=== PATIENT | female | born 1980 | race African-American/Black ===

== ENCOUNTER 2017-09-20 17:06 | Outpatient (CLI) | payer OTHER ==
[2017-09-20 19:02] LABS: ADD UMIC YES; UR ASCORBIC ACID 40 mg/dL (NEGATIVE); UR BILIRUBIN (Dip) NEGATIVE (NEGATIVE); UR BLOOD (Dip) NEGATIVE (NEGATIVE); UR CLARITY CLEAR (CLEAR); UR COLOR YELLOW (YELLOW); UR GLUCOSE (Dip) NEGATIVE (NEGATIVE); UR KETONES (Dip) 1+ mg/dL (NEGATIVE); UR LEUKOCYTE ESTERASE (Dip) TRACE Leu/ul (NEGATIVE); UR MUCUS FEW /HPF (NONE SEEN); UR NITRITE (Dip) NEGATIVE (NEGATIVE); UR RBC 2 /HPF (0-5); UR SPECIFIC GRAVITY (Dip) 1.034 (1.003-1.030); UR SQUAMOUS EPITHELIAL CELL FEW /HPF (FEW); UR TOTAL PROTEIN (Dip) 2+ mg/dl (NEGATIVE); UR UROBILINOGEN (Dip) 2+ mg/dL (NEGATIVE); UR WBC 5 /HPF (0-5)
== END 2017-09-20 19:48 | disposition home or self-care (01) ==
LOC: OBT 17:06 → L-D 17:08 → OBT 19:48
DX: O26.893 Other specified pregnancy related conditions, third trimester (principal); R30.0 Dysuria; K08.89 Other specified disorders of teeth and supporting structures; O09.523 Supervision of elderly multigravida, third trimester; Z3A.36 36 weeks gestation of pregnancy
CPT/HCPCS: 76818; 81001; 87086

== ENCOUNTER 2017-09-22 19:14 | Inpatient (IN) | payer OTHER ==
[2017-09-22 20:33] LABS: ADD UMIC YES; UR ASCORBIC ACID 20 mg/dL (NEGATIVE); UR BACTERIA FEW /HPF (NONE SEEN); UR BILIRUBIN (Dip) NEGATIVE (NEGATIVE); UR BLOOD (Dip) NEGATIVE (NEGATIVE); UR CLARITY CLEAR (CLEAR); UR COLOR YELLOW (YELLOW); UR GLUCOSE (Dip) NEGATIVE (NEGATIVE); UR KETONES (Dip) NEGATIVE (NEGATIVE); UR LEUKOCYTE ESTERASE (Dip) 1+ Leu/ul (NEGATIVE); UR NITRITE (Dip) NEGATIVE (NEGATIVE); UR RBC 1 /HPF (0-5); UR SPECIFIC GRAVITY (Dip) 1.014 (1.003-1.030); UR TOTAL PROTEIN (Dip) NEGATIVE (NEGATIVE); UR UROBILINOGEN (Dip) 2+ mg/dL (NEGATIVE); UR WBC 1 /HPF (0-5)
[2017-09-22] MEDS: LACTATED RINGER'S 1,000 ML IV (20:35)
[2017-09-22] MEDS ORDERED: LACTATED RINGER'S 1,000 ML IV (20:54)
[2017-09-22] MEDS: BETAMET NA PHOS/AC(6 MG/ML) 5ML INJ IM (21:13)
[2017-09-22] MEDS ORDERED: CEPHALEXIN 500 MG CAP PO (22:00)
[2017-09-22 23:37] LABS: HEPATITIS B SURFACE ANTIGEN NEGATIVE (NEGATIVE)
[2017-09-22] MEDS: CEPHALEXIN 500 MG CAP PO (23:55)
[2017-09-23] MEDS: LACTATED RINGER'S 1,000 ML IV ×3 (01:12→17:22)
[2017-09-23] MEDS: CEPHALEXIN 500 MG CAP PO ×3 (05:50→17:24)
== END 2017-09-23 18:23 | disposition home or self-care (01) | DRG 782 ==
LOC: OBT 19:14 → L-D 19:15 → OBT 20:50 → PP1 20:50
DX: O76 Abnormality in fetal heart rate and rhythm complicating labor and delivery (principal); O09.523 Supervision of elderly multigravida, third trimester; Z3A.36 36 weeks gestation of pregnancy
CPT/HCPCS: 76818; 81001; 87086; 87340

== ENCOUNTER 2017-09-26 20:27 | Outpatient (CLI) | payer OTHER | END 2017-09-26 22:25 | disposition home or self-care (01) | LOC: OBT 20:27 → L-D 20:29 → OBT 22:25 | DX: O76 Abnormality in fetal heart rate and rhythm complicating labor and delivery (principal); Z3A.37 37 weeks gestation of pregnancy | CPT/HCPCS: 76818 ==

== ENCOUNTER 2017-10-14 10:54 | Inpatient (IN) | payer OTHER ==
[2017-10-14] MEDS ORDERED: CARBOPROST 250 MCG INJ IM (11:30)
[2017-10-14] MEDS ORDERED: OXYTOCIN 30 UNITS/LR 500 ML IV (11:30)
[2017-10-14] MEDS ORDERED: BUTORPHANOL 1 MG INJ IV (11:30)
[2017-10-14] MEDS ORDERED: LIDOCAINE 1% (MPF) 30 ML INJ INJ (11:30)
[2017-10-14] MEDS ORDERED: METHYLERGONOVINE 0.2 MG INJ IM (11:30)
[2017-10-14] MEDS ORDERED: IBUPROFEN 600 MG TAB PO (11:30)
[2017-10-14] MEDS ORDERED: MISOPROSTOL 200 MCG TAB PR (11:30)
[2017-10-14] MEDS ORDERED: BUTORPHANOL 2 MG INJ IV (11:30)
[2017-10-14] MEDS: LACTATED RINGER'S 1,000 ML IV ×2 (11:44→17:24)
[2017-10-14] MEDS: DINOPROSTONE 10 MG VAG SUPP VAG (13:43)
[2017-10-14 14:10] LABS: ADD MAN DIFF? NO
[2017-10-14 14:14] LABS: BASOPHILS % 0.6 % (0.0-2.0); EOSINOPHILS # 0.2 10^3/ul (0.0-0.5); EOSINOPHILS % 3.1 % (0.0-7.0); HEMATOCRIT 33.1 % (37.0-47.0); HEMOGLOBIN 10.9 g/dl (12.0-16.0); LYMPHOCYTES # 1.6 10^3/ul (0.8-2.9); LYMPHOCYTES % 24.4 % (15.0-51.0); MEAN CORPUSCULAR HEMOGLOBIN 30.8 pg (29.0-33.0); MEAN CORPUSCULAR HGB CONC 32.9 g/dl (32.0-37.0); MEAN CORPUSCULAR VOLUME 93.5 fl (82.0-101.0); MEAN PLATELET VOLUME 9.8 fl (7.4-10.4); MONOCYTE # 0.5 10^3/ul (0.3-0.9); MONOCYTES % 8.4 % (0.0-11.0); NEUTROPHIL # 4.1 10^3/ul (1.6-7.5); PLATELET COUNT 371 10^3/UL (140-415); RED BLOOD COUNT 3.54 10^6/ul (4.20-5.40); RED CELL DISTRIBUTION WIDTH 13.3 % (11.5-14.5)
[2017-10-14 14:14] LABS: WHITE BLOOD COUNT 6.4 10^3/ul (4.8-10.8)
[2017-10-14 14:32] LABS: INR 0.95; PROTIME 12.8 Sec (11.9-14.9)
[2017-10-14 14:33] LABS: PARTIAL THROMBOPLASTIN TIME 26.9 Sec (25.0-35.0)
[2017-10-14 15:13] LABS: RAPID PLASMA REAGIN NONREACTIVE (NR)
[2017-10-14 20:19] LABS: HEPATITIS B SURFACE ANTIGEN NEGATIVE (NEGATIVE)
[2017-10-15] MEDS: LACTATED RINGER'S 1,000 ML IV ×4 (00:59→14:48)
[2017-10-15] MEDS ORDERED: NA PHOSPHATE/BIPHOS 133 ML ENEMA PR (08:30)
[2017-10-15] MEDS ORDERED: FENTAnyl 2MCG/ML-ROPIV 0.2% 100 ML (14:56)
[2017-10-15] MEDS ORDERED: DIPHENHYDRAMINE 50 MG INJ IV (15:30)
[2017-10-15] MEDS ORDERED: HYDROmorphONE 0.5 MG/0.5 ML SYG IV ×2 (15:30)
[2017-10-15] MEDS ORDERED: KETOROLAC 30 MG INJ IV (15:30)
[2017-10-15] MEDS ORDERED: ONDANSETRON 4 MG INJ IV (15:30)
[2017-10-15] MEDS ORDERED: FENTAnyl 2MCG/ML-ROPIV 0.2% 100 ML BAG EPI (15:30)
[2017-10-15] MEDS ORDERED: NALOXONE (0.4 MG/ML) INJ IV (15:30)
[2017-10-15] MEDS: OXYTOCIN 30 UNITS/LR 500 ML IV ×3 (17:42→20:51)
[2017-10-15] MEDS ORDERED: HYDROCODONE/APAP (5/325) TAB PO ×2 (23:30)
[2017-10-15] MEDS ORDERED: ZOLPIDEM 5 MG TAB PO (23:30)
[2017-10-15] MEDS ORDERED: METHYLERGONOVINE 0.2 MG INJ IM (23:30)
[2017-10-15] MEDS ORDERED: DIBUCAINE 1% 30 GM OINT PR (23:30)
[2017-10-15] MEDS ORDERED: CARBOPROST 250 MCG INJ IM (23:30)
[2017-10-15] MEDS ORDERED: MISOPROSTOL 200 MCG TAB PR (23:30)
[2017-10-15] MEDS ORDERED: OXYTOCIN 30 UNITS/LR 500 ML IV (23:30)
[2017-10-15] MEDS: IBUPROFEN 600 MG TAB PO (23:57)
[2017-10-15] MEDS: BENZOCAINE 20% 56 ML SPRAY TOP (23:57)
[2017-10-15] MEDS: WITCH HAZEL/GLYCERIN PAD PR (23:57)
[2017-10-15] MEDS: CEPHALEXIN 500 MG CAP PO (23:57)
[2017-10-16] MEDS: LACTATED RINGER'S 1,000 ML IV* ×2 (00:54→07:12)
[2017-10-16] MEDS: IBUPROFEN 600 MG TAB PO ×4 (05:42→23:50)
[2017-10-16] MEDS: CEPHALEXIN 500 MG CAP PO ×4 (05:42→23:50)
[2017-10-16 09:23] LABS: ADD MAN DIFF? NO
[2017-10-16 09:29] LABS: WHITE BLOOD COUNT 8.2 10^3/ul (4.8-10.8)
[2017-10-16 09:29] LABS: BASOPHIL # 0.1 10^3/ul (0.0-0.1); BASOPHILS % 0.6 % (0.0-2.0); EOSINOPHILS # 0.2 10^3/ul (0.0-0.5); EOSINOPHILS % 2.6 % (0.0-7.0); HEMATOCRIT 31.7 % (37.0-47.0); HEMOGLOBIN 10.6 g/dl (12.0-16.0); LYMPHOCYTES # 1.4 10^3/ul (0.8-2.9); LYMPHOCYTES % 16.7 % (15.0-51.0); MEAN CORPUSCULAR HEMOGLOBIN 31.4 pg (29.0-33.0); MEAN CORPUSCULAR HGB CONC 33.4 g/dl (32.0-37.0); MEAN CORPUSCULAR VOLUME 93.8 fl (82.0-101.0); MEAN PLATELET VOLUME 9.5 fl (7.4-10.4); MONOCYTE # 0.5 10^3/ul (0.3-0.9); MONOCYTES % 5.7 % (0.0-11.0); NEUTROPHILS % 73.8 % (39.0-77.0); PLATELET COUNT 281 10^3/UL (140-415); RED BLOOD COUNT 3.38 10^6/ul (4.20-5.40); RED CELL DISTRIBUTION WIDTH 13.2 % (11.5-14.5)
[2017-10-16] MEDS: MAGNESIUM HYDROXIDE 30ML CUP PO ×2 (10:47→21:27)
[2017-10-16] MEDS: LANOLIN 7 GM TUBE TOP (10:47)
[2017-10-16] MEDS: SENNA/DOCUSATE NA (8.6MG/50MG) TAB PO ×2 (10:47→21:27)
[2017-10-17] MEDS: CEPHALEXIN 500 MG CAP PO ×2 (05:36→12:44)
[2017-10-17] MEDS: IBUPROFEN 600 MG TAB PO ×2 (05:36→12:44)
[2017-10-17] MEDS: SENNA/DOCUSATE NA (8.6MG/50MG) TAB PO (08:49)
[2017-10-17] MEDS: MAGNESIUM HYDROXIDE 30ML CUP PO (08:50)
[2017-10-17] MEDS: VARICELLA VACCINE LIVE/PF 1,350 UNIT/0.5 ML ML SC* (09:00)
[2017-10-17] MEDS: DIPHTH/TET/ACEL PERTUSS (ADULT) 0.5 ML VIAL IM* (09:00)
[2017-10-17] MEDS: MEASLES,MUMPS,RUBELLA VACCINE INJ SC* (09:00)
== END 2017-10-17 13:10 | disposition home or self-care (01) | DRG 775 ==
LOC: L-D 10:54 → PP1 10-15 22:56
PROVIDERS: Obstetrics & Gynecology
PROC: 10E0XZZ Delivery of Products of Conception, External Approach (ICD-10-PCS; principal; 2017-10-15)
PROC: 3E033VJ Introduction of Other Hormone into Peripheral Vein, Percutaneous Approach (ICD-10-PCS; 2017-10-15)
DX: O48.0 Post-term pregnancy (principal); Z3A.40 40 weeks gestation of pregnancy; O69.81X0 Labor and delivery complicated by cord around neck, without compression, not applicable or unspecified; O99.214 Obesity complicating childbirth; E66.01 Morbid (severe) obesity due to excess calories; Z68.29 Body mass index [BMI] 29.0-29.9, adult; Z37.0 Single live birth
CPT/HCPCS: 62319; 76815; 85025; 85610; 85730; 86592; 86850; 86900; 86901; 87340